=== PATIENT | female | born 1990 | race Caucasian/White ===

== ENCOUNTER → 2016-07-15 | Day surgery (SDC) | payer OTHER ==
[2016-07-09 10:36] VITALS: Ht 154.9 cm; Wt 118.2 kg
[~2016-07-15] VITALS: Ht 154.9 cm; Wt 118.2 kg
[~2016-07-15] MED LIST: CLR10 PO; GLC/500 PO; IBUP-1050 PO; LIDOCAINE HCL 2% 2 ML VIAL (20MG/ML) ONE; MIDAZOLAM HCL 1 MG/ML 2ML VIAL ONE; PROPOFOL IV EMULSION 10 MG/ML 20 ML VIAL IV ONE; SERT100T PO; SODIUM CHLORIDE 0.9% 500ML 500 ML IV ONE; ZNTT/150 PO
--- NOTE | 2016-07-15 07:13 | Endo History and Physical ---
History & Physical Date of Service: Jul 15, 2016. Chief Complaint: Referring Physician: History of Present Illness 25 yo presenting for nausea, vomiting, and abdominal pain presenting for EGD Past Surgical History Hx Cardiac Surgery: No Hx Internal Defibrillator: No Hx Pacemaker: No Hx Abdominal Surgery: Yes (ALFRED) Hx of Implantable Prosthesis: No Hx Post-Op Nausea and Vomiting: No Hx Cancer Surgery: No Hx Thoracic Surgery: No Hx Orthopedic: Yes ([facility]) Hx Urinary Tract Surgery: No Family History None Social History Smoking Status: Light Tobacco Smoker Hx Substance Use: No Hx Alcohol Use: Yes (OCCASIONAL) Allergies Coded Allergies: BEE STING (Verified Allergy, Unknown, LOCAL SWELLING, 07/09/16) Lactose Intolerance (GI) (Verified Allergy, Unknown, GI UPSET, 07/09/16) Penicillins (Verified Allergy, Unknown, N/V, 07/09/16) Current Medications Reported Home Medications Medications Dose Route/Sig Max Daily Dose Days Date Category Advil (Ibuprofen) 200 Mg Tab 200-600 Mg PO Q4H PRN 07/09/16 Reported Zantac (Ranitidine HCl) 150 Mg Tab 150 Mg PO BID 07/09/16 Reported Claritin (Loratadine) 10 Mg Tab 10 Mg PO QAM 07/09/16 Reported Zoloft (Sertraline Hcl) 100 Mg Tab 100 Mg PO QAM 07/09/16 Reported Glucophage (Metformin Hcl) 500 Mg Tab 500 Mg PO QAM 07/09/16 Reported Vital Signs Weight (Kilograms): 118.18 Height (Feet): 5 Height (Inches): 1 Assessment and Plan 25 yo presenting with nausea, vomiting, and abdominal pain, presenting for EGD
--- NOTE | 2016-07-15 08:55 | Endo History and Physical ---
History & Physical Date of Service: Jul 15, 2016. Chief Complaint: abdominal pain and nausea Referring Physician: Radha Fitzgerald PA-C History of Present Illness 25 yo presenting for nausea, vomiting, and abdominal pain presenting for EGD Past Surgical History Hx Cardiac Surgery: No Hx Internal Defibrillator: No Hx Pacemaker: No Hx Abdominal Surgery: Yes (ALFRED) Hx of Implantable Prosthesis: No Hx Post-Op Nausea and Vomiting: No Hx Cancer Surgery: No Hx Thoracic Surgery: No Hx Orthopedic: Yes (LT [facility]) Hx Urinary Tract Surgery: No Family History None Social History Smoking Status: Light Tobacco Smoker Hx Substance Use: No Hx Alcohol Use: Yes (OCCASIONAL) Allergies Coded Allergies: BEE STING (Verified Allergy, Unknown, LOCAL SWELLING, 07/09/16) Lactose Intolerance (GI) (Verified Adverse Reaction, Unknown, GI UPSET, 03/21) Penicillins (Verified Adverse Reaction, Unknown, N/V, 07/15/16) Current Medications Reported Home Medications Medications Dose Route/Sig Max Daily Dose Days Date Category Advil (Ibuprofen) 200 Mg Tab 200-600 Mg PO Q4H PRN 07/09/16 Reported Zantac (Ranitidine HCl) 150 Mg Tab 150 Mg PO BID 07/09/16 Reported Claritin (Loratadine) 10 Mg Tab 10 Mg PO QAM 07/09/16 Reported Zoloft (Sertraline Hcl) 100 Mg Tab 100 Mg PO QAM 07/09/16 Reported Glucophage (Metformin Hcl) 500 Mg Tab 500 Mg PO QAM 07/09/16 Reported Vital Signs Weight (Kilograms): 118.18 Height (Feet): 5 Height (Inches): 1 Date Time Temp Pulse Resp B/P Pulse Ox O2 Delivery O2 Flow Rate FiO2 07/15/16 08:42 36.8 90 20 122/83 96 Room Air Physical Exam General Appearance: WD/WN, + obese Respiratory/Chest: Respiratory effort: no dyspnea Auscultation: breath sounds normal, CTA except as noted, no wheezing Cardiovascular: Apical Impulse: not displaced Heart Auscultation: RRR, normal S1, normal S2, no murmurs Abdomen: Inspection & Palpation: soft, non-distended, no tenderness, guarding & rebound Assessment and Plan 25 yo presenting for evaluation of nausea and vomiting and abdominal pain
--- NOTE | 2016-07-15 09:22 | GI REPORT ---
Procedure Date: 07/15/2016 8:50 AM Procedure: Upper GI endoscopy Indications: Nausea, Nausea with vomiting Medicines: General Anesthesia Complications: No immediate complications. Estimated blood loss: None. Estimated Blood Loss: Estimated blood loss: none. Procedure: Pre-Anesthesia Assessment: - Pre-Anesthesia Assessment: - Prior to the procedure, a History and Physical was performed, and patient medications, allergies and sensitivities were reviewed. The patient's tolerance of previous anesthesia was reviewed. Please see UB. for complete details. - The risks and benefits of the procedure and the sedation options and risks were discussed with the patient. All questions were answered and informed consent was obtained. - Patient identification and proposed procedure were verified prior to the procedure by the physician and the nurse. The procedure was verified in the pre-procedure area in the procedure room. After obtaining informed consent, the endoscope was passed carefully and meticuously under direct vision and only advanced when the lumen was clearly identified, C02 insuflation was utilized throughout the entirity of the procedure. Throughout the procedure, the patient's blood pressure, pulse, and oxygen saturations were monitored continuously. After obtaining informed consent, the endoscope was passed under direct vision. Throughout the procedure, the patient's blood pressure, pulse, and oxygen saturations were monitored continuously. The scope was introduced through the mouth, and advanced to the second part of duodenum. The upper GI endoscopy was accomplished without difficulty. The patient tolerated the procedure well. Findings: The examined esophagus was normal. The entire examined stomach was normal. Biopsies were taken with a cold forceps for histology. The examined duodenum was normal. Biopsies were taken with a cold forceps for histology. Impression: - Normal esophagus. - Normal stomach. Biopsied. - Normal examined duodenum. Biopsied. Recommendation: - Await pathology results. - Discharge patient to home (with escort). - Return to referring physician as previously scheduled. Sherman He MD 07/15/2016 9:22:04 AM This report has been signed electronically. Note Initiated On: 07/15/2016 8:50 AM I attest to the content of the Intraoperative Record and orders documented therein, exceptions below
--- NOTE | 2016-07-15 09:22 | Discharge Instructions ---
Endoscopy Patient Instructions Date / Procedure(s) Performed Jul 15, 2016. EGD Allergy Information Coded Allergies: BEE STING (Verified Allergy, Unknown, LOCAL SWELLING, 07/09/16) Lactose Intolerance (GI) (Verified Adverse Reaction, Unknown, GI UPSET, 03/21) Penicillins (Verified Adverse Reaction, Unknown, N/V, 07/15/16) Discharge Date / Findings Jul 15, 2016. Normal exam Biopsies taken of the stomach and duodenum Medication Instructions Stopped Medication(s): stopped Metformin Wednesday Provider Instructions Activity Restrictions - No exercising or heavy lifting for 24 hours. - Do not drink alcohol the day of the procedure. - Do not drive a car or operate machinery until the day after the procedure. - Do not make any important decisions or sign important papers in 24 hours after the procedure. Following Day: - Return to full activity which may include returning to work/school. Diet Start your diet with liquids and light foods (jello, soup, juice, toast). Then eat your usual diet if not nauseated. Treatment For Common After Affects For mild abdominal pain, bloating, or excessive gas: - Rest - Eat lightly - Lie on right side Follow-Up Information Follow-up with Radha Fitzgerald PA-C as scheduled Anesthesia Information What You Should Know You have had a procedure that required some medicine to reduce anxiety and discomfort. This treatment is called moderate sedation. After receiving the treatment, you may be sleepy, but you will be able to breathe on your own. The effects of the treatment may last for several hours. Follow these instructions along with Activity/Diet recommendations noted above: * Do NOT do anything where dizziness or clumsiness would be dangerous. * Rest quietly at home today, then you can be up and about tomorrow. * Have a responsible person stay with you the rest of today. * You may have had an I.V. today. If so, you may take the dressing off later today. Recommendations Call your doctor if: * Trouble breathing * Continuous vomiting for more than 24 hours * Temperature above 101 degrees * Severe abdominal pain or bloating * Pain not relieved by pain medicine ordered * There is increased drainage or redness from any incision * A large amount of rectal bleeding greater than 2-3 tablespoons. (If you had a polyp/s removed or have hemorrhoids, a small amount of blood - from the rectum is to be expected.) * You have any unanswered questions or concerns. IN THE EVENT OF A SERIOUS EMERGENCY, GO TO THE NEAREST EMERGENCY ROOM Your discharge instructions were prepared by provider Sherman He. Patient Instructions Signature Page [employer] Patient (or Guardian) Signature/Date: I have read and understand the instructions given to me by my caregivers. Caregiver/RN/Doctor Signature/Date: The above-named patient and/or guardian has received patient instructions on this date. + Original Patient Signature Page (only) stays with chart. Please make copy for patient.
[2016-07-15 09:45] VITALS: BP 109/78; PULSE 88; O2SAT 97
--- NOTE | 2016-07-15 14:23 | Anesthesiology Progress Note ---
Anesthesia Post Op Note Date & Time Jul 15, 2016 at 14:22 Vital Signs Pain Intensity: 0 Vital Signs Past 12 Hours Date Time Temp Pulse Resp B/P Pulse Ox O2 Delivery O2 Flow Rate FiO2 07/15/16 09:45 88 14 109/78 97 Room Air 07/15/16 09:29 88 14 107/79 97 Room Air 07/15/16 09:14 90 14 114/71 98 Room Air 07/15/16 08:42 36.8 90 20 122/83 96 Room Air Notes Mental Status: alert / awake / arousable, participated in evaluation Pt Amnestic to Procedure: Yes Nausea / Vomiting: adequately controlled Pain: adequately controlled Airway Patency, RR, SpO2: stable & adequate BP & HR: stable & adequate Hydration State: stable & adequate Anesthetic Complications: no major complications apparent
== END | disposition home or self-care (01) ==
LOC: C.GI 08:25
PROVIDERS: ATTEND Internal Medicine
DX: R11.2 Nausea with vomiting, unspecified (principal); E11.9 Type 2 diabetes mellitus without complications; J45.909 Unspecified asthma, uncomplicated; Z90.49 Acquired absence of other specified parts of digestive tract; Z68.42 Body mass index [BMI] 45.0-49.9, adult; E66.01 Morbid (severe) obesity due to excess calories; Z88.0 Allergy status to penicillin